=== PATIENT | male | born 1995 | race Caucasian/White ===

== ENCOUNTER 2019-06-04 20:39 | Emergency (ER) | payer SELFPAY ==
[~2019-06-04] VITALS: Ht 175.3 cm; Wt 99.8 kg
[2019-06-04 20:39] VITALS: BP 151/91
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
--- NOTE | 2019-06-04 20:39 | NUR ---
AMBULATED TO CHAIR C. ACCOMPANIED BY [facility].
--- NOTE | 2019-06-04 21:58 | NUR ---
Patient discharged with v/s stable. Written and verbal after care instructions given and explained. Patient verbalized understanding. Ambulatory with in custody W/ [facility]. All questions addressed prior to discharge. Advised to follow up with PMD.
[2019-06-04 21:59] VITALS: BP 145/88
== END 2019-06-04 21:59 ==
LOC: MED 20:39
DX: Z04.1 Encounter for examination and observation following transport accident (principal)
CPT/HCPCS: 99283